=== PATIENT | male | born 1965 | race Caucasian/White ===

== ENCOUNTER 2022-12-09 17:22 | Emergency (ER) | payer BC ==
[~2022-12-09] VITALS: Ht 185.4 cm; Wt 118.2 kg
[2022-12-09] MEDS ORDERED: CRESTOR20 MG PO (17:46)
[2022-12-09 17:58] LABS: BASO # 0.1 K/mm3 (0.0-0.2); BASO % 0.6 % (0.0-2.0); EOS % 0.4 % (0.0-4.0); GRAN # 7.7 K/mm3 (1.4-6.5); GRAN % 68.2 % (42.2-75.2); HEMATOCRIT 47.9 % (42.0-52.0); HEMOGLOBIN 16.9 g/dl (13.5-18.0); LYMPH # 2.2 K/mm3 (1.2-3.4); LYMPH % 19.5 % (20.0-51.0); MEAN CELL VOLUME 90 fl (80.0-100.0); MEAN CORPUSCULAR HEMOGLOBIN 32 pg (27-31); MEAN CORPUSCULAR HGB CONC 35 g/dl (33.0-37.0); MEAN PLATELET VOLUME 10.3 fl (7.4-10.4); MONO # 1.2 K/mm3 (0.1-0.6); MONO % 10.9 % (1.7-9.3); PLATELET COUNT 249 K/mm3 (130-400); REDCELL DISTRIBUTION WIDTH-CV 12.4 % (11.5-14.5)
[2022-12-09 18:10] LABS: ALBUMIN 4.5 gm/dL (3.5-5.0); CALCIUM 9.8 mg/dL (8.4-10.2); CREATININE, serum 0.88 mg/dL (0.72-1.25); POTASSIUM 4.2 mmol/L (3.5-4.5); TOTAL PROTEIN 7.6 gm/dL (6.2-8.1)
[2022-12-09 18:20] LABS: TROPONIN-I 5.4 ng/mL (0.00-0.033)
[2022-12-09 18:41] LABS: PROTHROMBIN TIME 11.9 SECONDS (9.7-12.8)
[2022-12-09 18:44] LABS: PARTIAL THROMBOPLASTIN TIME 36.3 SECONDS (26.0-37.0)
[2022-12-09 20:45] VITALS: BP 133/90; PULSE 90; TEMP 98.7; O2SAT 97
== END 2022-12-09 20:45 | disposition short-term general hospital (02) ==
LOC: COL.ER 17:22
PROVIDERS: Nurse Practitioner
DX: I21.4 Non-ST elevation (NSTEMI) myocardial infarction (principal); E78.5 Hyperlipidemia, unspecified; D72.829 Elevated white blood cell count, unspecified; Z79.899 Other long term (current) drug therapy; Z28.310 Unvaccinated for COVID-19
CPT/HCPCS: J1644; J7030

== ENCOUNTER → 2023-02-01 | Outpatient (RCR) | payer BC ==
[~2023-02-01] MED LIST: CRESTOR20 MG PO
== END | disposition home or self-care (01) ==
LOC: COL.CR
DX: I25.2 Old myocardial infarction (principal)